=== PATIENT | male | born 1975 | race Caucasian/White ===

== ENCOUNTER 2021-12-21 12:16 | Emergency (ER) | payer OTHER ==
[~2021-12-21] VITALS: Wt 88.5 kg
[~2021-12-21 12:16] MED LIST: AMOXICILLIN500 MG PO; ANAPROX DS550 MG PO; BENADRYL50 MG PO; CLINDAMYCIN HC300 MG PO; DELTASONE20 MG PO; HYDROCODONE BIT1 T11 PO; NKHM PO; NORCO 325 MG-51 TAB PO; PEN-VEE K500 MG PO; ULTRAM50 MG PO; VIBRAMYCIN100 MG PO; ZITHROMAX Z PA250 MG PO
[2021-12-21 13:13] LABS: BASO % 0.4 % (0.0-1.0); EOS # 0.1 10*3/uL (0.0-0.4); EOS % 0.9 % (1.0-4.0); HEMATOCRIT 45.3 % (42.0-52.0); LYMPH # 2.1 10*3/uL (1.3-4.4); LYMPH % 26.6 % (27.0-41.0); MEAN CELL VOLUME 83.9 fl (80.0-94.0); MEAN CORPUSCULAR HGB 29.8 pg (27.0-31.0); MEAN CORPUSCULAR HGB CONC 35.5 g/dl (33.0-37.0); MEAN PLATELET VOLUME 9.2 fl (9.6-12.3); MONO # 0.8 10*3/uL (0.1-1.0); MONO % 9.6 % (3.0-9.0); NEUT # 4.9 10*3/uL (2.3-7.9); NEUT % 62.2 % (47.0-73.0); PLATELET COUNT AUTOMATED 307 10*3/uL (130-400); RED CELL DISTRI WIDTH 12.6 % (0-14.5); WHITE BLOOD COUNT 7.9 10*3/uL (4.8-10.8)
[2021-12-21 13:35] LABS: ALBUMIN 3.7 gm/dl (3.1-4.5); ALKALINE PHOSPHATASE 79 U/L (45-117); BUN 8 mg/dl (7-24); CHLORIDE 108 mmol/L (98-107); CREATININE 0.89 mg/dL (0.70-1.30); LIPASE 129 U/L (73-393); SGOT/AST 21 IU/L (3-35); SGPT/ALT 47 U/L (12-78); SODIUM 140 mmol/L (136-145); TOTAL PROTEIN 7.5 gm/dL (6.4-8.2)
[2021-12-21 15:44] LABS: BILIRUBIN Negative (Negative); BLOOD Negative (Negative); CLARITY Clear (Clear); COLOR Yellow (Yellow); GLUCOSE Negative (Negative); KETONE Negative (Negative); LEUKO ESTERASE Negative (Negative); NITRITE Negative (Negative); PH 7.5 (4.5-8.0); SPECIFIC GRAVITY 1.015 (1.001-1.030); UROBILINOGEN 0.2 E.U./dl (0.0-1.0)
[2021-12-21 15:52] LABS: EPITHELIAL CELLS 0-2; RBC 0-2 rbc/hpf (0-2)
[2021-12-21] MEDS ORDERED: Motrin,Rufen800 MG PO (18:06)
== END 2021-12-21 18:29 | disposition home or self-care (01) ==
LOC: ED 12:16
PROVIDERS: Physician Assistant
DX: K63.89 Other specified diseases of intestine (principal); Z79.899 Other long term (current) drug therapy

== ENCOUNTER 2023-06-17 10:36 | Emergency (ER) | payer OTHER ==
[~2023-06-17] VITALS: Ht 198.1 cm; Wt 104.3 kg
[~2023-06-17 10:36] MED LIST changes: +Motrin,Rufen800 MG PO
[2023-06-17] MEDS ORDERED: VALTREX500 MG PO (11:20)
[2023-06-17] MEDS ORDERED: PREDNISONE20 M1 PO (11:20)
== END 2023-06-17 11:31 | disposition home or self-care (01) ==
LOC: ED 10:36
DX: B02.9 Zoster without complications (principal); K21.9 Gastro-esophageal reflux disease without esophagitis; Z98.890 Other specified postprocedural states